=== PATIENT | male | born 1990 | race Caucasian/White ===

== ENCOUNTER 2017-02-27 12:44 | Inpatient (IN) | payer OTHER ==
[~2017-02-27] VITALS: Ht 167.6 cm; Wt 56.2 kg
--- NOTE | ~2017-02-27 | CON ---
[place], [place] REPORT OF CONSULTATION NAME: MARTA MONREAL UNIT #: [id number] ROOM: 528 DOCTOR: ASHLEY RAMOS MD BIRTHDATE: [birth year] DOS: 03/01/2017 ADMITTING PHYSICIAN: Jeremias Frausto DO REASON FOR CONSULTATION: Right ear swelling. HISTORY OF PRESENT ILLNESS: Marta Monreal is a 26-year-old white male who was admitted to [facility] for chronic opiate use, who was noted that he has had swelling of the right ear. ENT has been consulted. He has been empirically started on Bactrim DS. PAST MEDICAL HISTORY: Otitis C, IV drug abuse. PAST SURGICAL HISTORY: Surgical manipulation of the ankle joint. SOCIAL HISTORY: Cocaine abuse, marijuana abuse, opiate abuse. Denies cigarettes or tobacco abuse. HOME MEDICATIONS: None. ALLERGIES: No known drug allergies. PHYSICAL EXAMINATION: GENERAL: Shows a 26-year-old male in no distress. HEENT: Right auricle shows evidence of auricular hematoma. The left ear is clear. Both TMs intact. Nose shows no mucopus or polyps. Oral cavity and oropharynx clear. NECK: Supple. IMPRESSION: Right auricular hematoma. PLAN: The hematoma was drained using an 18-gauge needle and the fluid was sent to microbiology for culture and sensitivity. Pressure wrap was placed following the right auricle to prevent reaccumulation. Recommend continued Bactrim-DS. Thank you for this consultation. ASHLEY RAMOS MD CM:CONSTR:REPORT OF CONSULTATION 1429 03/01/17 1440 interface
--- NOTE | ~2017-02-27 | EKG ---
[place], [place] ELECTROCARDIOGRAM REPORT NAME: MARTA CATALAN UNIT #: [id number] ROOM: 528 DOCTOR: SAMMY MCKEON MD BIRTHDATE: [birth year] DOS: 02/27/2017 TIME: 13:17 FINDINGS: Normal sinus rhythm, normal electrocardiogram. SAMMY MCKEON MD CM:EKGRPT:ELECTROCARDIOGRAM REPORT 50 45 SAMMY MCKEON MD
[2017-02-27 12:52] VITALS: BP 133/74
[2017-02-27 13:13] LABS: BASO % 0.1 % (0.0-1.0); EOS # 0.1 10*3/uL (0.0-0.4); EOS % 0.9 % (1.0-4.0); HEMATOCRIT 40.2 % (42.0-52.0); HEMOGLOBIN 13.5 g/dl (14.0-18.0); LYMPH # 1.4 10*3/uL (1.3-4.4); LYMPH % 19.3 % (27.0-41.0); MEAN CELL VOLUME 91.4 fl (80.0-94.0); MEAN CORPUSCULAR HGB 30.7 pg (27.0-31.0); MEAN CORPUSCULAR HGB CONC 33.6 g/dl (33.0-37.0); MEAN PLATELET VOLUME 9.3 fl (9.6-12.3); MONO # 0.6 10*3/uL (0.1-1.0); MONO % 7.4 % (3.0-9.0); NEUT # 5.4 10*3/uL (2.3-7.9); PLATELET COUNT AUTOMATED 249 10*3/uL (130-400); WHITE BLOOD COUNT 7.5 10*3/uL (4.8-10.8)
[2017-02-27 13:20] LABS: BILIRUBIN NEGATIVE (NEGATIVE); BLOOD NEGATIVE (NEGATIVE); CLARITY CLEAR (CLEAR); COLOR YELLOW (YELLOW); GLUCOSE NEGATIVE (NEGATIVE); KETONE NEGATIVE (NEGATIVE); LEUKO ESTERASE NEGATIVE (NEGATIVE); NITRITE NEGATIVE (NEGATIVE); PROTEIN NEGATIVE (NEGATIVE)
[2017-02-27 13:30] LABS: ALBUMIN 3.4 gm/dl (3.1-4.5); ALKALINE PHOSPHATASE 81 U/L (45-117); BILIRUBIN, TOTAL 0.5 mg/dl (0.2-1.0); BUN 11 mg/dl (7-24); CARBON DIOXIDE 30 mmol/L (21-32); CHLORIDE 103 mmol/L (98-107); EST GLOM FILT AFRICAN AMERICAN > 60 ml/min; GLUCOSE 86 mg/dL (65-99); POTASSIUM 3.8 mmol/L (3.5-5.1); SGOT/AST 39 IU/L (3-35); SGPT/ALT 59 U/L (12-78); SODIUM 141 mmol/L (136-145); TOTAL PROTEIN 6.8 gm/dL (6.4-8.2)
[2017-02-27 13:31] LABS: URINE AMPHETAMINES < 1000 (1000ng/ml); URINE BARBITURATES < 200 (200ng/ml); URINE COCAINE < 300 (300ng/ml)
[2017-02-27 13:38] LABS: THYROID STIM HORMONE (HS) 0.246 uIU/ml (0.358-4.75)
[2017-02-27 13:47] LABS: EPITHELIAL CELLS 0-2; MUCOUS 1+; URINE REFLEX COMMENT NO (NO)
[2017-02-27 13:50] VITALS: BP 118/67
[2017-02-27 16:00] VITALS: BP 140/84
[2017-02-27 18:00] VITALS: BP 140/84
[2017-02-27 20:00] VITALS: BP 140/82
[2017-02-28] VITALS: BP 94/48
[2017-02-28 04:00] VITALS: BP 111/57
[2017-02-28 08:00] VITALS: BP 107/53
[2017-02-28 12:00] VITALS: BP 123/66
[2017-02-28 16:00] VITALS: BP 109/60
[2017-02-28 20:00] VITALS: BP 118/61
[2017-03-01] VITALS: BP 111/61
[2017-03-01 08:00] VITALS: BP 108/56
[2017-03-01] MEDS ORDERED: CARBIDOPA/LEVOD1 TA1 PO (13:05)
[2017-03-01] MEDS ORDERED: SEPTRA DS 800 M1 TAB PO (13:05)
[2017-03-01] MEDS ORDERED: ZOFRAN 4 MG ED2 TAB PO (13:05)
[2017-03-01] MEDS ORDERED: ATARAX,VISTARIL50 MG PO (13:05)
[2017-03-01 16:00] VITALS: BP 114/60
[2017-03-01 20:00] VITALS: BP 118/71
[2017-03-02 00:31] VITALS: BP 116/61
[2017-03-02 06:24] LABS: BASO % 0.3 % (0.0-1.0); EOS # 0.4 10*3/uL (0.0-0.4); EOS % 6.2 % (1.0-4.0); HEMATOCRIT 46.1 % (42.0-52.0); HEMOGLOBIN 15.1 g/dl (14.0-18.0); IG # 0.1 10*3/uL (0.0-0.1); LYMPH # 3.3 10*3/uL (1.3-4.4); LYMPH % 49.4 % (27.0-41.0); MEAN CELL VOLUME 93.3 fl (80.0-94.0); MEAN CORPUSCULAR HGB 30.6 pg (27.0-31.0); MEAN CORPUSCULAR HGB CONC 32.8 g/dl (33.0-37.0); MEAN PLATELET VOLUME 9.7 fl (9.6-12.3); MONO # 0.6 10*3/uL (0.1-1.0); MONO % 8.3 % (3.0-9.0); NEUT # 2.3 10*3/uL (2.3-7.9); NEUT % 34.9 % (47.0-73.0); PLATELET COUNT AUTOMATED 286 10*3/uL (130-400); RED BLOOD COUNT 4.94 10*6/uL (4.50-5.90); RED CELL DISTRI WIDTH 12.9 % (0-14.5); WHITE BLOOD COUNT 6.6 10*3/uL (4.8-10.8)
[2017-03-02 06:50] LABS: EST GLOM FILT AFRICAN AMERICAN > 60 ml/min
[2017-03-02 08:00] VITALS: BP 127/74
== END 2017-03-02 15:02 | disposition home or self-care (01) | DRG 897 ==
LOC: ED 12:44 → EDHOLD 13:01 → 5E 13:01
PROVIDERS: Internal Medicine; Nurse Practitioner Family
DX: F11.23 Opioid dependence with withdrawal (principal); E44.0 Moderate protein-calorie malnutrition; S00.431A Contusion of right ear, initial encounter; F14.10 Cocaine abuse, uncomplicated; D64.9 Anemia, unspecified; Z68.1 Body mass index [BMI] 19.9 or less, adult; B19.20 Unspecified viral hepatitis C without hepatic coma; E05.90 Thyrotoxicosis, unspecified without thyrotoxic crisis or storm; Z82.49 Family history of ischemic heart disease and other diseases of the circulatory system